=== PATIENT | female | born 1985 | race Two or more races ===

== ENCOUNTER 2016-09-30 19:54 | Emergency (ER) | payer MEDICAID ==
[~2016-09-30] VITALS: Ht 167.6 cm; Wt 110.7 kg
[2016-09-30] MEDS ORDERED: NKM (19:59)
[2016-09-30 20:15] VITALS: BP 140/74
[2016-09-30 20:52] LABS: LYMPHOCYTES % (AUTO) 18.1 % (20.0-45.0); MEAN CORPUSCULAR HEMOGLOBIN 30.3 PG (27.0-31.0); MEAN CORPUSCULAR HGB CONC 34.7 G/DL (32.0-36.0); MEAN CORPUSCULAR VOLUME 87 FL (80-99); MEAN PLATELET VOLUME 7.5 FL (6.5-10.1); MONOCYTES % (AUTO) 5.4 % (1.0-10.0); NEUTROPHILS % (AUTO) 74.5 % (45.0-75.0); PLATELET COUNT 225 K/UL (150-450); RED BLOOD COUNT 4.12 M/UL (4.20-5.40); RED CELL DISTRIBUTION WIDTH 13.3 % (11.6-14.8); WHITE BLOOD COUNT 12.2 K/UL (4.8-10.8)
[2016-09-30 21:03] LABS: APPEARANCE,URINE SLIGHTLY CLOUDY; KETONES,URINE NEGATIVE (NEGATIVE); LEUKOCYTE ESTERASE ,URINE 3+ (NEGATIVE); NITRITE,URINE NEGATIVE (NEGATIVE); PH,URINE 5 (4.5-8.0); PROTEIN,URINE 1+ (NEGATIVE); UROBILINOGEN,URINE 1 MG/DL (0.0-1.0)
[2016-09-30 21:06] LABS: ICTOTEST NEGATIVE
[2016-09-30 21:13] LABS: ALANINE AMINOTRANSFERASE 15 U/L (3-33); ALBUMIN/GLOBULIN RATIO 1.1 (1.0-2.7); ANION GAP 14 (5-15); ASPARTATE AMINO TRANSFERASE 14 U/L (5-40); CALCIUM 9.2 mg/dL (8.6-10.2); CARBON DIOXIDE 22 mEQ/L (20-30); CHLORIDE 104 mEQ/L (98-107); CREATININE 0.8 mg/dL (0.5-0.9); GLOMERULAR FILTRATION RATE > 60 mL/min (>60); HEMOLYSIS 3; LIPASE 30 U/L (< 60); POTASSIUM 3.5 mEQ/L (3.4-4.9); SODIUM 140 mEQ/L (135-145); TOTAL PROTEIN 5.9 g/dL (6.6-8.7)
[2016-09-30 21:18] LABS: BACTERIA,URINE MANY /HPF; SQUAMOUS EPITHELIAL CELL,UR MODERATE /LPF (NONE/OCC)
[2016-09-30] MEDS ORDERED: Acetaminophen 500mg (ES) tab ORAL ONE (21:45)
[2016-09-30] MEDS ORDERED: Cephalexin 500mg cap ORAL ONE (21:45)
[2016-09-30] MEDS ORDERED: TYLENOL EXTRA500 MG ORAL (21:46)
[2016-09-30] MEDS ORDERED: CEPHALEXIN500 MG ORAL (21:46)
[2016-09-30 22:15] VITALS: BP 130/72
[2016-09-30 22:20] VITALS: BP 130/72
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
--- NOTE | 2016-10-04 08:28 | Diagnostic Imaging Report ---
Indication:Third trimester . 31-year-old female with pelvic pain. Technique: Grayscale and duplex Doppler imaging of the pelvis performed utilizing a transabdominal scan and endovaginal scan. Comparison: None Findings: Single living intrauterine demonstrated. heart rate 139 beats per minute. Presentation appears to be cephalic. The gestational age is 36 weeks 5 days based on sonographic criteria. measurements are as follows: Biparietal diameter 91.6 mm, 37 weeks one day Head circumference 312.8 mm, 35 weeks Femur length 74.5 mm, 38 weeks one day. Abdominal circumference apparently not included in the measurement. Proportionality ratios not calculated.. Estimated weight not given or calculated. ELISAEBTH not calculated. Subjectively assessed based on still images the amniotic fluid volume appears appropriate for gestational age in the third trimester. The cervix is not demonstrated on any of the images. The cord is seen but not demonstrated adequately.. The placenta is not demonstrated adequately. anatomic survey was attempted but images are grossly inadequate in terms of demonstration of anatomy. Significant abnormalities may be missed on this examination in terms of anatomy. Impression: The study demonstrates a single living intrauterine 36 weeks 5 days gestational age in cephalic presentation. Otherwise, this exam is grossly inadequate in terms of demonstration of maternal structures. This is outlined above. The study should be repeated significant abnormalities may be missed. Note: A negative ultrasound evaluation does not insure well-being or positive outcome for the . monitoring including a nonstress test may be needed and clinical evaluation by [employer] [facility] is highly recommended.
== END 2016-09-30 22:20 | disposition home or self-care (01) ==
LOC: EMR 21:18
DX: O23.43 Unspecified infection of urinary tract in pregnancy, third trimester (principal); Z3A.00 Weeks of gestation of pregnancy not specified; D72.829 Elevated white blood cell count, unspecified
CPT/HCPCS: 36415; 76805; 80053; 81003; 81025; 83690; 84702; 85025; 87086; 87181; 99284

== ENCOUNTER 2016-11-12 14:03 | Emergency (ER) | payer SELFPAY ==
[~2016-11-12] VITALS: Ht 167.6 cm; Wt 95.3 kg
[~2016-11-12 14:03] MED LIST: CEPHALEXIN500 MG ORAL; NKM; TYLENOL EXTRA500 MG ORAL
[2016-11-12] MEDS ORDERED: PREDNISONE20 MG ORAL (14:56)
[2016-11-12] MEDS ORDERED: IBUPROFEN600 MG ORAL (14:56)
[2016-11-12] MEDS ORDERED: AMOXICILLIN500 MG ORAL (14:56)
[2016-11-12 15:00] VITALS: BP 109/62
--- NOTE | 2016-11-12 18:41 | Emergency Room Report ---
History of Present Illness General Chief Complaint: Pain Source: Patient Present Illness [facility] The patient is a 31-year-old female presenting for cough, subjective fever, and sore throat since yesterday. She denies any known sick contacts recent travel. Pain is an 8/10 dull ache to the back of the throat and does not radiate. Worse with swallowing. She denies any other symptoms including nausea, vomiting , neck pain or stiffness, rash, hemoptysis, SOB Allergies: Coded Allergies: No Known Allergies (Unverified , 09/30/16) Patient History Past Medical History: see triage record Pertinent Family History: none Last Menstrual Period: 11/12/16 Now: No Reviewed Nursing Documentation: PMH: Agreed, PSxH: Agreed Nursing Documentation-PMH Past Medical History: No Stated History Review of Systems All Other Systems: negative except mentioned in HPI Physical Exam Vital Signs Date Time Temp Pulse Resp B/P (MAP) Pulse Ox O2 Delivery O2 Flow Rate FiO2 11/12/16 14:24 99.0 104 15 109/62 99 Room Air Sp02 EP Interpretation: reviewed, normal General Appearance: no apparent distress, alert, GCS 15, non-toxic Head: normocephalic, atraumatic Eyes: bilateral eye normal inspection, bilateral eye PERRL ENT: hearing grossly normal, no angioedema, normal voice, uvula midline, tonsillar swelling, pharyngeal erythema, tonsillar exudate Neck: full range of motion, supple/symm/no masses Respiratory: chest non-tender, lungs clear, normal breath sounds, no wheezing, speaking full sentences Cardiovascular #1: regular rate, rhythm, no edema Musculoskeletal: back normal, gait/station normal, normal range of motion, non- tender Neurologic: alert, oriented x3, responsive, motor strength/tone normal, sensory intact, speech normal Psychiatric: judgement/insight normal, memory normal, mood/affect normal, no suicidal/homicidal ideation Skin: normal color, no rash, warm/dry, well hydrated Lymphatic: adenopathy Medical Decision Making PA Attestation Dr. Watts is my supervising physician. Patient management was discussed with my supervising physician Diagnostic Impression: Primary Impression: Pharyngitis, acute Qualified Codes: J02.9 - Acute pharyngitis, unspecified ER Course Differential diagnosis include but not limited to pharyngitis, sinusitis, AOM, bronchitis, PNA Physical exam: Vitals within normal limits. Afebrile. No apparent distress HEENT exam: There is bilateral tonsillar edema, erythema, and exudate. Uvula midline. Moist mucous membranes. There is bilateral cervical lymphadenopathy. Lungs are clear to auscultation bilaterally Skin is warm and dry. No rash The patient will be discharged home with a prescription for amoxicillin, motrin , and prednisone and is given ER precautions. Patient will followup with primary care Last Vital Signs Date Time Temp Pulse Resp B/P (MAP) Pulse Ox O2 Delivery O2 Flow Rate FiO2 11/12/16 15:00 99.0 15 109/62 99 Room Air 11/12/16 14:24 104 Status: improved Disposition: HOME, SELF-CARE Condition: Improved Scripts Prednisone* (PREDNISONE*) 20 Mg Tablet 20 MG ORAL DAILY, #4 TAB 0 Refills Prov: MAKAYLA OVALLE P.A. 11/12/16 Ibuprofen* (MOTRIN*) 600 Mg Tablet 600 MG ORAL Q8H Y for For Pain, #30 TAB 0 Refills Prov: MAKAYLA OVALLE P.A. 11/12/16 Amoxicillin* (AMOXIL*) 500 Mg Capsule 500 MG ORAL Q12HR, #20 CAP Prov: TERZIANMAKAYLA P.A. 11/12/16 Referrals: NOT CHOSEN [facility]/MD,REFERRING (PCP) Patient Instructions: Pharyngitis Additional Instructions: I discussed my findings with the patient. All questions and concerns have been answered. Treatment and medication compliance have been addressed. I advised the patient that they need to follow up with PMD in 3-5 days. Return to ED if pain remains or worsens, cough worsens or remains, you notice blood in your sputum, you notice wheezing, you experience a fever, or if needed for any reason. Patient verbalized understanding of discharge instructions. MAKAYLA OVALLE Nov 12, 2016 18:40
== END 2016-11-12 15:09 | disposition home or self-care (01) ==
LOC: EMR 14:45
DX: J02.9 Acute pharyngitis, unspecified (principal)
CPT/HCPCS: 99284

== ENCOUNTER 2017-04-02 10:20 | Emergency (ER) | payer MEDICAID ==
[~2017-04-02] VITALS: Ht 167.6 cm; Wt 90.7 kg
[~2017-04-02 10:20] MED LIST changes: +AMOXICILLIN500 MG ORAL; +IBUPROFEN600 MG ORAL; +PREDNISONE20 MG ORAL
[2017-04-02 10:50] VITALS: BP 102/41
--- NOTE | 2017-04-02 10:58 | Emergency Room Report ---
History of Present Illness General Chief Complaint: Abdominal Pain Source: Patient Present Illness HPI Patient 32-year-old female presented after increased epigastric pain. Reported having epigastric crampy sensation. She reports having previous had been diagnosed with a hernia. She denies vomiting. The pain was intermittent in nature. She denied any vomiting or diarrhea. She reportedly had been having normal bowel movement. She reported having prior . She denies any black or bloody stool Allergies: Coded Allergies: No Known Allergies (Unverified , 09/30/16) Patient History Past Medical History: see triage record Last Menstrual Period: 03/30/17 Now: No : 2 Para: 2 Reviewed Nursing Documentation: PMH: Agreed, PSxH: Agreed Nursing Documentation-PMH Past Medical History: No Stated History Review of Systems All Other Systems: negative except mentioned in HPI Physical Exam Vital Signs Date Time Temp Pulse Resp B/P (MAP) Pulse Ox O2 Delivery O2 Flow Rate FiO2 04/02/17 10:30 98.1 113 22 104/65 96 Room Air Sp02 EP Interpretation: reviewed, normal General Appearance: normal inspection, well appearing, no apparent distress, alert, GCS 15 Head: atraumatic ENT: normal ENT inspection, hearing grossly normal, normal voice Neck: normal inspection, full range of motion, supple, no bony tend Respiratory: normal inspection, lungs clear, normal breath sounds, no respiratory distress, no retraction, no wheezing Cardiovascular #1: regular rate, rhythm, no edema Gastrointestinal: normal inspection, normal bowel sounds, non tender, soft, no guarding, no hernia, other - umbilical hernia, reducible Genitourinary: no CVA tenderness Musculoskeletal: normal inspection, back normal, normal range of motion Neurologic: normal inspection, alert, responsive, speech normal Psychiatric: normal inspection, judgement/insight normal, mood/affect normal Skin: normal inspection, normal color, no rash Medical Decision Making Diagnostic Impression: Primary Impression: Hernia of abdominal wall Additional Impression: UTI (urinary tract infection) ER Course Patient presented for abdominal pain. Differential diagnoses included ischemic bowel, appendicitis, perforated viscus, abdominal aortic aneurysm, inferior myocardial infarction, viral gastroenteritis Patient has a benign exam and does not appear to require any further imaging or laboratory testing at this time. The patient presented hernia which is easily reduced. Pain improved after reduction. The patient is advised to follow up with primary care doctor in 1-2 days. for Gen. surgery referral. Patient is advised to return if any worsening condition or if any changes in status that are concerning. This report is dictated with [employer] assembly adjuster software which may occasionally lead to discrepancies related to use of this software. Labs Test 04/02/17 10:47 Urine Color Brown Urine Appearance Slightly cloudy Urine pH 6 (4.5-8.0) Urine Specific [place] 1.020 (1.005-1.035) Urine Protein 2+ (NEGATIVE) Urine Glucose (UA) Negative (NEGATIVE) Urine Ketones Negative (NEGATIVE) Urine Occult Blood 1+ (NEGATIVE) Urine Nitrite Negative (NEGATIVE) Urine Bilirubin Negative (NEGATIVE) Urine Urobilinogen 4 MG/DL (0.0-1.0) Urine Leukocyte Esterase 3+ (NEGATIVE) Urine RBC 0-2 /HPF (0 - 2) Urine WBC 20-30 /HPF (0 - 2) Urine Squamous Epithelial Cells Many /LPF (NONE/OCC) Urine Bacteria Few /HPF (NONE) Urine HCG, Qualitative Negative Last Vital Signs Date Time Temp Pulse Resp B/P (MAP) Pulse Ox O2 Delivery O2 Flow Rate FiO2 04/02/17 10:50 105 17 102/41 100 Room Air 04/02/17 10:30 98.1 Status: improved Disposition: HOME, SELF-CARE Condition: Stable Scripts Dicyclomine Hcl* (BENTYL*) 10 Mg Capsule 10 MG ORAL FOUR TIMES A DAY, #20 CAP Prov: Jimbo Little 04/02/17 Ondansetron (Zofran) 4 Mg Tablet 4 MG ORAL Q6H Y for Nausea & Vomiting, #30 TAB 0 Refills Prov: Jimbo Little 04/02/17 Cephalexin* (KEFLEX*) 500 Mg Capsule 500 MG ORAL Q6H, #28 CAP 0 Refills Prov: Jimbo Little 04/02/17 Referrals: NOT CHOSEN [facility]/,REFERRING (PCP) Jimbo Little Apr 02, 2017 10:58
[2017-04-02] MEDS ORDERED: Dicyclomine HCl 10mg/5ml oral soln ORAL ONE (11:00)
[2017-04-02 11:10] LABS: APPEARANCE,URINE SLIGHTLY CLOUDY; BILIRUBIN, URINE NEGATIVE (NEGATIVE); COLOR,URINE BROWN; GLUCOSE, URINE (UA) NEGATIVE (NEGATIVE); KETONES,URINE NEGATIVE (NEGATIVE); LEUKOCYTE ESTERASE ,URINE 3+ (NEGATIVE); NITRITE,URINE NEGATIVE (NEGATIVE); PH,URINE 6 (4.5-8.0); PROTEIN,URINE 2+ (NEGATIVE); UROBILINOGEN,URINE 4 MG/DL (0.0-1.0)
[2017-04-02] MEDS ORDERED: Cephalexin 500mg cap ORAL ONE (11:45)
[2017-04-02] MEDS ORDERED: BENTYL10 MG ORAL (11:46)
[2017-04-02] MEDS ORDERED: KEFLEX500 MG ORAL (11:46)
[2017-04-02] MEDS ORDERED: ZOFRAN4 MG ORAL (11:46)
[2017-04-02 12:08] VITALS: BP 110/66
[2017-04-02 12:09] VITALS: BP 110/66
== END 2017-04-02 12:25 | disposition home or self-care (01) ==
LOC: EMR 10:40
DX: K43.9 Ventral hernia without obstruction or gangrene (principal)
CPT/HCPCS: 81003; 81025; 87086; 87181; 99284